=== PATIENT | female | born 1950 | race Two or more races ===

== ENCOUNTER 2016-07-10 12:30 | Emergency (ER) | payer MEDICAID ==
[2016-07-10] MEDS ORDERED: GLIPIZIDE ER10 MG PO (13:06)
[2016-07-10] MEDS ORDERED: ZOLOFT50 M1 PO (13:07)
[2016-07-10] MEDS ORDERED: CEPACOL SORE T1 EAC2 PO (13:07)
[2016-07-10] MEDS ORDERED: LIPITOR80 M1 PO (13:08)
[2016-07-10] MEDS ORDERED: PRINIVIL20 M1 PO (13:08)
[2016-07-10] MEDS ORDERED: TRADJENTA5 M1 PO (13:09)
[2016-07-10] MEDS ORDERED: GLUCOPHAGE1000 M1 PO (13:09)
[2016-07-10] MEDS ORDERED: SILTUSSIN DM C118 ML PO (13:18)
[2016-07-10] MEDS ORDERED: VITAMIN D35000 UNI3 PO (13:19)
[2016-07-10] MEDS ORDERED: ULTRAM50 M1 PO (14:01)
== END 2016-07-10 14:15 ==
LOC: EDMED 12:30
DX: S16.1XXA Strain of muscle, fascia and tendon at neck level, initial encounter (principal); S00.81XA Abrasion of other part of head, initial encounter; E11.9 Type 2 diabetes mellitus without complications; Z79.899 Other long term (current) drug therapy; W01.0XXA Fall on same level from slipping, tripping and stumbling without subsequent striking against object, initial encounter; Y92.012 Bathroom of single-family (private) house as the place of occurrence of the external cause